=== PATIENT | male | born 1945 | race Caucasian/White ===

== ENCOUNTER → 2016-12-06 | Outpatient (CLI) | payer MEDICARE, BC | END | disposition home or self-care (01) | LOC: PCVCCLINIC 15:24 | PROVIDERS: ATTEND Internal Medicine Cardiovascular Disease | DX: I48.91 Unspecified atrial fibrillation (principal); I25.10 Atherosclerotic heart disease of native coronary artery without angina pectoris; I25.5 Ischemic cardiomyopathy; I49.5 Sick sinus syndrome; E78.5 Hyperlipidemia, unspecified; I10 Essential (primary) hypertension | CPT/HCPCS: 36415; 93005; G0463 ==

== ENCOUNTER → 2017-03-19 | Outpatient (CLI) | payer MEDICARE, BC ==
[~2017-03-19] MED LIST: DIAZEPAM 10 MG TABLET. ONE; HEPARIN SODIUM 5,000 UNIT/ML VIAL for PCVC. ONE; IODIXANOL 270 MG/ML 100 ML VIAL. ONE; IV NORMAL SALINE 1000ML BAG 1,000 ML ONE; IV NORMAL SALINE 500ML BAG 0 ML ONE; LIDOCAINE 1% Multi-Dose 20 ML VIAL. ONE; MIDAZOLAM HCL/PF 2 MG/2 ML VIAL. ONE; fentaNYL PF VIAL 100 MCG/2 ML VIAL ONE; hydrALAZINE 20 MG/ML VIAL. ONE
--- NOTE | 2017-03-19 10:18 | PCVCINTER ---
EXAM: 1. AORTOGRAM AND BILATERAL LOWER EXTREMITY RUNOFF ANGIOGRAM 2. BILATERAL RENAL ANGIOGRAPHY INDICATION: Peripheral arterial disease. Coronary artery disease. Nonhealing ulcer both lower extremities.. Hypertension. Renal atherosclerosis. PROCEDURE: Procedure and risks of angiography intervention is appropriate including limb loss stroke and were discussed with the patient's family and consent obtained. The patient's right groin was prepped abnormal sterile fashion. IV conscious sedation was used to procedure with appropriate monitoring for 60 minutes. Ultrasound was used to interrogate the right groin and showed the right common femoral artery to be patent. A permanent spot film was obtained. Under ultrasound guidance access into the right common femoral artery was obtained and a 5 Frisian sheath was placed. Through this a 5 Frisian flush catheter was placed into the abdominal aorta at the level of the renal arteries and AP aortogram was performed. Catheter was positioned at the aortic bifurcation and both oblique views of the pelvis were obtained. Catheter was positioned into the right external iliac artery and right leg runoff angiography was performed. Catheter was exchanged for a visceral catheter was placed into the right renal arteries and right renal angiograms obtained. Catheter was placed into the the left renal arteries and left renal angiograms were obtained. Catheter was advanced to the level of the left external iliac artery and left leg runoff angiography was obtained. Catheters and wires removed. Sheath was removed and hemostasis obtained using the Exoseal device. No immediate complications. FINDINGS: Aortogram: There is one right and one left renal artery. Moderate calcific plaque infrarenal abdominal aorta without significant stenosis. Pelvis: Moderate plaque right and left common iliac arteries without flow-limiting stenosis. There is occlusion of the right internal iliac artery. 80% stenosis at the origin of the left internal iliac artery. Scattered plaque both external iliac arteries does not cause flow-limiting stenosis. Right renal artery: Eccentric plaque proximal vessel results in 40% stenosis which is not flow-limiting. Left renal artery: Moderate plaque proximal vessel does not cause flow-limiting stenosis. Right leg: The common femoral and profunda femoral arteries show good patency. There is occlusion throughout the midportion of the superficial femoral artery. Fairly well-developed profunda femoral collaterals refill the distal SFA which shows adequate patency. Moderate plaque mid popliteal artery without flow-limiting stenosis. 60% stenosis mid anterior tibial artery. The peroneal artery and posterior tibial arteries show scattered plaque without flow-limiting stenosis. Left leg: Common femoral and profunda femoral arteries are patent. Scattered plaque at the superficial femoral artery without significant stenosis. Popliteal artery is patent. The anterior tibial artery is occluded throughout its length. Scattered plaque peroneal artery which is otherwise generous in size showing good patency. The posterior tibial artery is diffusely small likely developmental. The peroneal artery refills the distal most posterior tibial artery to runoff into the plantar arteries with retrograde refilling of the dorsalis pedis. 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 Left peroneal artery is generous in size showing satisfactory patency to provide runoff into the foot. Case was reviewed with Dr. Anderson from wound care. Blood flow left lower leg should be adequate to allow healing. Patient will follow up with Dr. Anderson over the next several weeks. If there is persistent delay in healing of right leg wounds we will undertake recanalization of the right SFA. LOC:[id number]
== END | disposition home or self-care (01) ==
LOC: PCVCINTER 07:11
PROVIDERS: ATTEND Nuclear Medicine Nuclear Cardiology
DX: I70.213 Atherosclerosis of native arteries of extremities with intermittent claudication, bilateral legs (principal); I10 Essential (primary) hypertension; I70.1 Atherosclerosis of renal artery
CPT/HCPCS: 36246; 36252; 75716; 76937; 99152; 99153; C1751; C1760; C1769; C1894; J2250; J3010; J7030; Q9966; J0360; J0690; J1644; J7040